=== PATIENT | female | born 1930 | race Caucasian/White ===

== ENCOUNTER 2018-11-02 05:45 | Inpatient (IN) | payer OTHER ==
[~2018-11-02] VITALS: Ht 175.3 cm; Wt 70.0 kg
[~2018-11-02 05:45] MED LIST: AMOX1TAB10 PO; CLOP75TA27 PO; DOCU-144 PO; LACTINEX PO; LETR2.5T PO; METO-335 PO
[2018-11-02 05:52] VITALS: Ht 175.3 cm; Wt 70.0 kg
[2018-11-02] MEDS ORDERED: morphine 4 MG/ML VIAL IV STA (06:15)
[2018-11-02] MEDS ORDERED: SOD CHLORIDE 0.9% 1,000 ML IV STA (06:15)
[2018-11-02] MEDS ORDERED: ONDANSETRON 4 MG INJ IV STA (06:15)
[2018-11-02] MEDS ORDERED: LIDOCAINE 1% (MDV) 20 ML INJ ONE (07:38)
[2018-11-02] MEDS ORDERED: LIDOCAINE 1% (MDV) 20 ML INJ SC ONE (08:00)
[2018-11-02] MEDS ORDERED: CEFEPIME 1GM/50 ML (PMX) 50 ML IVPB ONE (08:00)
[2018-11-02] MEDS: POTASSIUM CHLORIDE (SR) 20 MEQ TAB PO STA ×3 (11:20→16:19)
[2018-11-02] MEDS ORDERED: NACL 0.9% 3 ML SYG IV SCH (11:30)
[2018-11-02] MEDS ORDERED: KETOROLAC 15 MG INJ IV PRN (11:30)
[2018-11-02] MEDS ORDERED: hydrALAzine 20 MG INJ IV PRN (11:30)
[2018-11-02] MEDS ORDERED: CEFTRIAXONE 1 GM/50 ML (PMX) 50 ML IVPB SCH (12:00)
[2018-11-02] MEDS: PANTOPRAZOLE 40 MG INJ IV SCH (13:57)
[2018-11-02] MEDS: SOD CHLORIDE 0.9% 1,000 ML IV SCH ×2 (13:58→23:34)
[2018-11-02 17:20] VITALS: BP 167/78; PULSE 57; RESP 20
[2018-11-02 19:56] VITALS: BP 140/74; PULSE 73; RESP 17
[2018-11-03 01:34] VITALS: BP 129/70; PULSE 73; RESP 18
[2018-11-03] MEDS: PANTOPRAZOLE 40 MG INJ IV SCH (05:17)
[2018-11-03] MEDS: SOD CHLORIDE 0.9% 1,000 ML IV SCH ×3 (05:24→18:16)
[2018-11-03 07:59] VITALS: BP 121/61; PULSE 60; RESP 18
[2018-11-03] MEDS: MEROPENEM 1 GM/50ML(PMX) 50 ML IVPB SCH ×2 (13:59→21:32)
[2018-11-03] MEDS: ENOXAPARIN 40 MG/0.4 ML SYG SC SCH (14:05)
[2018-11-03 15:52] VITALS: BP 130/64; PULSE 70; RESP 19
[2018-11-03 20:09] VITALS: BP 117/68; PULSE 81; RESP 18
[2018-11-04] MEDS: SOD CHLORIDE 0.9% 1,000 ML IV SCH ×2 (00:34→05:46)
[2018-11-04 01:31] VITALS: BP 131/80; PULSE 62; RESP 18
[2018-11-04] MEDS: PANTOPRAZOLE 40 MG INJ IV SCH (05:46)
[2018-11-04 08:00] VITALS: BP 137/65; PULSE 57; RESP 20
[2018-11-04] MEDS: MEROPENEM 1 GM/50ML(PMX) 50 ML IVPB SCH (09:00)
[2018-11-04] MEDS: ENOXAPARIN 40 MG/0.4 ML SYG SC SCH (09:01)
[2018-11-04] MEDS ORDERED: LETROZOLE 2.5 MG TAB PO SCH (13:00)
[2018-11-04 13:37] VITALS: BP 132/80; PULSE 73; RESP 18
== END 2018-11-04 17:50 | DRG 562 ==
LOC: E/R 05:45 → 2NE 09:33
PROVIDERS: ADMIT Internal Medicine; ATTEND Family Medicine
PROC: 0PSHXZZ Reposition Right Radius, External Approach (ICD-10-PCS; principal; 2018-11-02)
DX: S52.531A Colles' fracture of right radius, initial encounter for closed fracture (principal); G93.41 Metabolic encephalopathy; N39.0 Urinary tract infection, site not specified; F03.90 Unspecified dementia, unspecified severity, without behavioral disturbance, psychotic disturbance, mood disturbance, and anxiety; I10 Essential (primary) hypertension; W19.XXXA Unspecified fall, initial encounter; B96.20 Unspecified Escherichia coli [E. coli] as the cause of diseases classified elsewhere
CPT/HCPCS: 36415; 70450; 71045; 80048; 80053; 81001; 83690; 83735; 85025; 87081; 87086; 92610; 96374; 96375; C9113; J0692; J0696; J1650; J2185; J2270; J2405; J7030